=== PATIENT | male | born 1960 | race Native Hawaiian/Other Pacific Islander ===

== ENCOUNTER 2016-11-26 22:11 | Emergency (ER) | payer MEDICAID ==
[2016-11-26 22:17] VITALS: BP 130/80; PULSE 81; RESP 16; TEMP 97.9; O2SAT 100
--- NOTE | 2016-11-26 22:40 | ED PDOC ---
Lower Extremity Pain/Injury Time Seen by Provider: 11/26/16 22:19 Chief Complaint (Nursing): Lower Extremity Problem/Injury History Per: Patient Onset/Duration Of Symptoms: Gradual Current Symptoms Are (Timing): Still Present Severity: Mild Pain Scale Rating Of: 2 Additional Complaint(s): Redness and irritation to both feet unkown duration. No trauma. Past Medical History Vital Signs: Last Vital Signs Temp 97.9 F 11/26/16 22:14 Pulse 81 11/26/16 22:14 Resp 16 11/26/16 22:14 BP 130/80 11/26/16 22:14 Pulse Ox 100 11/26/16 22:14 - Medical History PMH: Depression, HTN, Hypercholesterolemia - Family History Family History: States: Unknown Family Hx - Immunization History Hx Tetanus Toxoid Vaccination: No Hx Influenza Vaccination: No Hx Pneumococcal Vaccination: No - Home Medications Home Medications: Ambulatory Orders Medication Instructions Recorded Atorvastatin [Lipitor] 11/13/15 Hydrochlorothiazide 11/13/15 Clotrimazole/Betamethasone 15 gm EXT BID #2 tube 11/26/16 [Lotrisone] - Allergies Allergies/Adverse Reactions: Allergies Allergy/AdvReac Type Severity Reaction Status Date / Time No Known Allergies Allergy Verified 11/26/16 22:14 Review of Systems Constitutional: Negative for: Fever Musculoskeletal: Positive for: Foot Pain Physical Exam - Physical Exam Appears: Positive for: Non-toxic, No Acute Distress Skin: Positive for: Rash (Erythemetous rash toes and interdigital spaces bilat. No swelling) - ECG O2 Sat by Pulse Oximetry: 100 Disposition - Clinical Impression Clinical Impression: Tinea pedis - Patient ED Disposition Is Patient to be Admitted: No Counseled Patient/Family Regarding: Diagnosis, Need For Followup, Rx Given - Disposition Referrals: Podiatry Clinic [Outside] Disposition: Routine/Home Disposition Time: 22:41 Condition: FAIR Prescriptions: Clotrimazole/Betamethasone [Lotrisone] 15 gm EXT BID #2 tube Instructions: Tinea Pedis (ED)
== END 2016-11-26 23:00 | disposition home or self-care (01) ==
LOC: H.ER 22:11
DX: B35.3 Tinea pedis (principal)

== ENCOUNTER 2016-12-23 22:22 | Emergency (ER) | payer MEDICAID ==
[2016-12-23 22:30] VITALS: BP 106/62; PULSE 70; RESP 16; TEMP 99.1; O2SAT 99
--- NOTE | 2016-12-23 23:37 | ED PDOC ---
Lower Extremity Pain/Injury Time Seen by Provider: 12/23/16 22:38 Chief Complaint (Nursing): Lower Extremity Problem/Injury Chief Complaint (Provider): rash to both feet History Per: Patient Additional Complaint(s): 56-year-old non-domiciled male presents to emergency department with a rash to both feet ongoing for 1 year. Patient states rash has been bothering him more so in the last couple of days. Patient currently lives at the retirement in [place]. He denies any recent fall or trauma, denies any fever or chills. Past Medical History Reviewed: Historical Data, Nursing Documentation, Vital Signs Vital Signs: Last Vital Signs Temp 99.1 F 12/23/16 22:26 Pulse 70 12/23/16 22:26 Resp 16 12/23/16 22:26 BP 106/62 12/23/16 22:26 Pulse Ox 99 12/23/16 22:26 - Medical History PMH: Depression, HTN, Hypercholesterolemia - Family History Family History: States: No Known Family Hx - Living Arrangements Living Arrangements: Other (lives in retirement in [place]) - Social History Current smoker - smoking cessation education provided: No Alcohol: None Drugs: Denies - Home Medications Home Medications: Ambulatory Orders Medication Instructions Recorded Atorvastatin [Lipitor] 11/13/15 Hydrochlorothiazide 11/13/15 Clotrimazole/Betamethasone 15 gm EXT BID #2 tube 11/26/16 [Lotrisone] Ketoconazole 2% Cr [Nizoral] 60 gm TOP BID #1 tube 12/23/16 - Allergies Allergies/Adverse Reactions: Allergies Allergy/AdvReac Type Severity Reaction Status Date / Time No Known Allergies Allergy Verified 11/26/16 22:14 Wells Criteria for PE - Wells Criteria for Pulmonary Embolism Clinical Signs and Symptoms of DVT: No P.E is #1 Diagnosis, or Equally Likely: No Heart Rate >100: No Immobilization at least 3 days;Surgery previous 4 weeks: No Previous, objectively diagnosed PE or DVT: No Hemoptysis: No Malignancy w/treatment within 6 months, or palliative: No Total Score: 0 Review of Systems ROS Statement: Except As Marked, All Systems Reviewed And Found Negative Constitutional: Negative for: Fever Musculoskeletal: Positive for: Foot Pain Physical Exam - Reviewed Nursing Documentation Reviewed: Yes Vital Signs Reviewed: Yes - Physical Exam Appears: Positive for: Well, Non-toxic, No Acute Distress Skin: Negative for: Rash Eye Exam: Positive for: Normal appearance Extremity: Positive for: Other (tinea pedis noted to both feet with acute cellulitis, no active drainage, severe dry skin noted to plantar aspects of both feet, normal distal sensation, palpable DP pulses bilaterally) Neurologic/Psych: Positive for: Alert, Oriented, Gait (steady) - ECG O2 Sat by Pulse Oximetry: 99 Pulse Ox Interpretation: Normal Medical Decision Making Medical Decision Making: Impression: chronic tinea pedis Plan: Rx ketoconazole cream Patient was instructed to apply cream as directed, as prescribed. He was referred to clinic for follow up. Disposition - Clinical Impression Clinical Impression: Tinea pedis - Patient ED Disposition Is Patient to be Admitted: No Counseled Patient/Family Regarding: Diagnosis, Need For Followup, Rx Given - Disposition Referrals: Podiatry Clinic [Outside] Disposition: Routine/Home Disposition Time: 23:21 Condition: STABLE Additional Instructions: Apply cream as directed. Follow up with clinic. Prescriptions: Ketoconazole 2% Cr [Nizoral] 60 gm TOP BID #1 tube Instructions: Tinea Pedis (ED)
== END 2016-12-24 00:23 | disposition home or self-care (01) ==
LOC: H.ER 22:22
DX: B35.3 Tinea pedis (principal)

== ENCOUNTER 2017-02-26 00:58 | Emergency (ER) | payer MEDICAID ==
[2017-02-26 01:07] VITALS: BP 112/75; PULSE 74; RESP 18; TEMP 98.6; O2SAT 99
[2017-02-26 01:08] VITALS: BMI 20.7
[2017-02-26] MEDS ORDERED: Promethazine/Cod 6.25mg-10mg/5ml Syr UD PO STA (01:30)
--- NOTE | 2017-02-26 01:34 | ED PDOC ---
HPI: Skin/Bite Injury Time Seen by Provider: 02/26/17 01:17 Chief Complaint (Nursing): Cough, Cold, Congestion Chief Complaint (Provider): Cough History Per: Patient Additional Complaint(s): Patient is a 56 yo male, PMh of HTN, High Cholesterol and Depression, presents to ED with c/o cough and nasal congestion x 2 days. Denies chest pain, SOB. Past Medical History Reviewed: Nursing Documentation, Vital Signs Vital Signs: Last Vital Signs Temp 98.6 F 02/26/17 01:15 Pulse 74 02/26/17 01:15 Resp 18 02/26/17 01:15 BP 112/75 02/26/17 01:15 Pulse Ox 99 02/26/17 01:34 - Medical History PMH: Depression, HTN, Hypercholesterolemia - Family History Family History: States: Unknown Family Hx - Living Arrangements Living Arrangements: With Family - Social History Current smoker - smoking cessation education provided: No Alcohol: None Drugs: Denies - Immunization History Hx Tetanus Toxoid Vaccination: No Hx Influenza Vaccination: No Hx Pneumococcal Vaccination: No - Home Medications Home Medications: Ambulatory Orders Medication Instructions Recorded Atorvastatin [Lipitor] 11/13/15 Hydrochlorothiazide 11/13/15 Clotrimazole/Betamethasone 15 gm EXT BID #2 tube 11/26/16 [Lotrisone] Ketoconazole 2% Cr [Nizoral] 60 gm TOP BID #1 tube 12/23/16 Azithromycin [Zithromax] 500 mg PO DAILY #6 tab 02/26/17 Guaifenesin/Pseudoephedrne HCl 1 tab PO DAILY PRN #30 ter 02/26/17 [Mucinex D 600 mg-60 mg] Promethazine HCl/Codeine 5 ml PO HS #80 ml 02/26/17 [Prometh-Codein 6.25-10 mg/5 ml] - Allergies Allergies/Adverse Reactions: Allergies Allergy/AdvReac Type Severity Reaction Status Date / Time No Known Allergies Allergy Verified 02/26/17 01:15 Review of Systems ROS Statement: Except As Marked, All Systems Reviewed And Found Negative Respiratory: Positive for: Cough Physical Exam - Reviewed Nursing Documentation Reviewed: Yes Vital Signs Reviewed: Yes - Physical Exam Appears: Positive for: Well, Non-toxic, No Acute Distress Head Exam: Positive for: ATRAUMATIC, NORMAL INSPECTION, NORMOCEPHALIC Skin: Positive for: Normal Color, Warm, DRY Eye Exam: Positive for: EOMI, Normal appearance, PERRL ENT: Positive for: Normal ENT Inspection Neck: Positive for: Normal, Painless ROM Cardiovascular/Chest: Positive for: Regular Rate, Rhythm Respiratory: Positive for: CNT, Normal Breath Sounds Gastrointestinal/Abdominal: Positive for: Normal Exam, Bowel Sounds, Soft Back: Positive for: Normal Inspection Extremity: Positive for: Normal ROM Neurologic/Psych: Positive for: Alert, Oriented - ECG O2 Sat by Pulse Oximetry: 99 Medical Decision Making Medical Decision Making: CXR: increased kimberly hilar markings and questionable infiltrate RLL Given RX for Mucinex, Zithromax and Promethazine with codeine Disposition - Clinical Impression Clinical Impression: Upper respiratory infection - Patient ED Disposition Is Patient to be Admitted: No - Disposition Disposition: Routine/Home Disposition Time: 04:45 Condition: STABLE Prescriptions: Azithromycin [Zithromax] 500 mg PO DAILY #6 tab Guaifenesin/Pseudoephedrne HCl [Mucinex D 600 mg-60 mg] 1 tab PO DAILY PRN #30 ter PRN Reason: congestion Promethazine HCl/Codeine [Prometh-Codein 6.25-10 mg/5 ml] 5 ml PO HS #80 ml Instructions: Upper Respiratory Infection (ED) Forms: [employer] (Yakut)
[2017-02-26] MEDS ORDERED: Promethazine/Cod 6.25mg-10mg/5ml Syr UD ONE (01:37)
--- NOTE | 2017-02-26 08:05 | RAD ---
HISTORY: Cough COMPARISON: 11/03/2015. TECHNIQUE: Chest PA and lateral FINDINGS: LUNGS: Hyperinflation, manifestations of COPD. No active pulmonary disease. PLEURA: No significant pleural effusion identified. No pneumothorax apparent. CARDIOVASCULAR: Normal. OSSEOUS STRUCTURES: No significant abnormalities. VISUALIZED UPPER ABDOMEN: Normal. OTHER FINDINGS: None. IMPRESSION: No active disease. No significant interval change compared to the prior examination(s). No preliminary report provided by emergency department personnel.
== END 2017-02-26 06:02 | disposition home or self-care (01) ==
LOC: H.ER 00:58
DX: J06.9 Acute upper respiratory infection, unspecified (principal); E78.00 Pure hypercholesterolemia, unspecified; F32.9 Major depressive disorder, single episode, unspecified; I10 Essential (primary) hypertension

== ENCOUNTER 2017-02-28 05:18 | Emergency (ER) | payer MEDICAID ==
[2017-02-28 05:18] VITALS: BMI 20.7
--- NOTE | 2017-02-28 06:03 | ED PDOC ---
Lower Extremity Pain/Injury Time Seen by Provider: 02/28/17 05:36 Chief Complaint (Nursing): Lower Extremity Problem/Injury Chief Complaint (Provider): Lower Extremity Problem History Per: Patient History/Exam Limitations: no limitations Onset/Duration Of Symptoms: Worse Since (x1 week) Current Symptoms Are (Timing): Constant Additional Complaint(s): 56 year old male presents to ED with complaints of bilateral lower extremity swelling and has a past medical history of HTN and hypercholesterolemia. Patient states that this condition is chronic and admits to being evaluated by podiatry last week, but notes that in the last week his extremities have become more swollen and painful. (-) chest pain, (+) SOB (chronic). PCP: None Past Medical History Reviewed: Historical Data, Nursing Documentation, Vital Signs Vital Signs: Last Vital Signs Temp 97.8 F 02/28/17 05:29 Pulse 66 02/28/17 05:29 Resp 15 02/28/17 05:29 BP 123/79 02/28/17 05:29 Pulse Ox 98 02/28/17 05:29 - Medical History PMH: Depression, HTN, Hypercholesterolemia Denies: No Chronic Diseases - Surgical History Surgical History: No Surg Hx - Family History Family History: States: Unknown Family Hx - Living Arrangements Living Arrangements: Other (Undomiciled) - Social History Alcohol: Other ((+) drinker) - Immunization History Hx Tetanus Toxoid Vaccination: No Hx Influenza Vaccination: No Hx Pneumococcal Vaccination: No - Home Medications Home Medications: Ambulatory Orders Medication Instructions Recorded Atorvastatin [Lipitor] 11/13/15 Hydrochlorothiazide 11/13/15 Clotrimazole/Betamethasone 15 gm EXT BID #2 tube 11/26/16 [Lotrisone] Ketoconazole 2% Cr [Nizoral] 60 gm TOP BID #1 tube 12/23/16 Azithromycin [Zithromax] 500 mg PO DAILY #6 tab 02/26/17 Guaifenesin/Pseudoephedrne HCl 1 tab PO DAILY PRN #30 ter 02/26/17 [Mucinex D 600 mg-60 mg] Promethazine HCl/Codeine 5 ml PO HS #80 ml 02/26/17 [Prometh-Codein 6.25-10 mg/5 ml] - Allergies Allergies/Adverse Reactions: Allergies Allergy/AdvReac Type Severity Reaction Status Date / Time No Known Allergies Allergy Verified 02/26/17 01:15 Wells Criteria for PE - Wells Criteria for Pulmonary Embolism Heart Rate >100: No Immobilization at least 3 days;Surgery previous 4 weeks: No Previous, objectively diagnosed PE or DVT: No Hemoptysis: No Malignancy w/treatment within 6 months, or palliative: No Total Score: 0 Review of Systems ROS Statement: Except As Marked, All Systems Reviewed And Found Negative Cardiovascular: Negative for: Chest Pain Respiratory: Positive for: Shortness of Breath (chronic) Musculoskeletal: Positive for: Leg Pain (bilateral leg swelling and pain) Physical Exam - Reviewed Nursing Documentation Reviewed: Yes Vital Signs Reviewed: Yes - Physical Exam Appears: Positive for: Non-toxic, No Acute Distress Head Exam: Positive for: ATRAUMATIC Skin: Positive for: Normal Color, Warm, Dry Eye Exam: Positive for: Normal appearance, EOMI, PERRL ENT: Positive for: Normal ENT Inspection Neck: Positive for: Normal Cardiovascular/Chest: Positive for: Regular Rate, Rhythm. Negative for: Murmur Respiratory: Positive for: Normal Breath Sounds. Negative for: Respiratory Distress Gastrointestinal/Abdominal: Positive for: Soft. Negative for: Tenderness Extremity: Positive for: Normal ROM, Swelling (bilateral lower extremity swelling; 1+ pitting edema to bilateral knees). Negative for: Deformity Neurologic/Psych: Positive for: Alert, Oriented. Negative for: Motor/Sensory Deficits - ECG O2 Sat by Pulse Oximetry: 98 (RA) Pulse Ox Interpretation: Normal Medical Decision Making Medical Decision Makin Initial impression: venous stasis Initial plan: * Labs * D Dimer * US DUPLEX LOWER EXTRM VEIN BILAT 0700 Patient will be signed out to Ragini Hines MD pending work up and US. Scribe Attestation: Documented by Ayla Johnson acting as a scribe for Austin Kim MD. Scribe Attestation: All medical record entries made by the Scribe were at my direction and personally dictated by me. I have reviewed the chart and agree that the record accurately reflects my personal performance of the history, physical exam, medical decision making, and the department course for this patient. I have also personally directed, reviewed, and agree with the discharge instructions and disposition. Disposition - Clinical Impression Clinical Impression: Leg swelling - Patient ED Disposition Is Patient to be Admitted: Transfer of Care - Disposition Disposition: Transfer of Care Disposition Time: 07:00 Condition: STABLE Forms: [employer] (Sami) Patient Signed Over To: Ragini Hines (at 0700) Handoff Comments: Pending ED work up and US
[2017-02-28 06:36] LABS: BASO # 0.1 K/uL (0.0-0.2); EOS # 0.2 K/uL (0.0-0.7); EOS % 3.1 % (0.0-4.0); LYMPH # 1.5 K/uL (1.0-4.3); LYMPH % 27.3 % (20.0-40.0); MEAN CELL VOLUME 93.5 fl (80.0-94.0); MEAN CORPUSCULAR HEMOGLOBIN 31.6 pg (27.0-31.0); MEAN CORPUSCULAR HGB CONC 33.8 g/dL (33.0-37.0); MONO # 0.6 K/uL (0.0-0.8); NEUT # 3.2 K/uL (1.8-7.0); NEUT % 57.6 % (50.0-75.0); NRBC % 0.1 % (0.0-0.0); RED CELL DISTRIBUTION WIDTH 13.7 % (11.5-14.5); WHITE BLOOD COUNT 5.6 K/uL (4.8-10.8)
[2017-02-28 06:37] LABS: BLOOD UREA NITROGEN 25 mg/dl (9-20); CALCIUM 8.7 mg/dL (8.4-10.2); CARBON DIOXIDE 27 mmol/L (22-30); CHLORIDE 105 mmol/L (98-107); GFR AFRICAN-AMERICAN > 60; GLUCOSE,RANDOM 92 mg/dL (75-110); POTASSIUM 3.6 MMOL/L (3.6-5.0); SODIUM 145 mmol/l (132-148)
--- NOTE | 2017-02-28 07:05 | ED PDOC ---
- Laboratory Results Result Diagrams: 02/28/17 06:10 02/28/17 06:10 - ECG O2 Sat by Pulse Oximetry: 98 (RA) Medical Decision Making Medical Decision Making: Received patient from Dr. Kim. Patient is pending ProBNP and LE Duplex US for leg swelling. US and proBNP unrevealing of acute disease Disposition Doctor Will See Patient In The: Office Counseled Patient/Family Regarding: Diagnosis, Need For Followup - Clinical Impression Clinical Impression: Leg swelling - POA Present On Arrival: None - Disposition Referrals: [facility] [Outside] [facility] [Outside] [facility] [Outside] Podiatry Clinic [Outside] Disposition: Routine/Home Disposition Time: 10:25 Condition: STABLE Instructions: Leg Edema (ED) Forms: [employer] (Yoruba)
--- NOTE | 2017-02-28 07:43 | US ---
EXAM: US Duplex Bilateral Lower Extremity Veins CLINICAL HISTORY: 56 years old, male; Pain; Other: Legs; Additional info: R/O dvt TECHNIQUE: Real-time ultrasound scan of the veins of the bilateral lower extremities with color Doppler flow, spectral waveform analysis and compression. COMPARISON: No relevant prior studies available. FINDINGS: Right deep veins: Unremarkable. No DVT in the right common femoral, femoral, proximal deep femoral or popliteal veins. The veins demonstrate normal color flow, are normally compressible, with normal phasic flow and/or augmentation response. Right superficial veins: Unremarkable. No thrombus in the visualized right great saphenous vein. Left deep veins: Unremarkable. No DVT in the left common femoral, femoral, proximal deep femoral or popliteal veins. The veins demonstrate normal color flow, are normally compressible, with normal phasic flow and/or augmentation response. Left superficial veins: Unremarkable. No thrombus in the visualized left great saphenous vein. Soft tissues: No acute findings. No popliteal cyst. IMPRESSION: Normal bilateral lower extremity duplex venous ultrasound.
[2017-02-28 07:54] VITALS: BP 126/74; PULSE 84; RESP 18; TEMP 98.4
[2017-02-28 10:26] VITALS: O2SAT 98
== END 2017-02-28 11:00 | disposition home or self-care (01) ==
LOC: H.ER 05:18
DX: R60.0 Localized edema (principal); I10 Essential (primary) hypertension; E78.00 Pure hypercholesterolemia, unspecified; F32.9 Major depressive disorder, single episode, unspecified; Z86.718 Personal history of other venous thrombosis and embolism

== ENCOUNTER 2017-03-06 22:20 | Emergency (ER) | payer MEDICAID ==
[2017-03-06 22:20] VITALS: BMI 20.7
[2017-03-06 22:35] VITALS: BP 113/63; PULSE 78; RESP 18; TEMP 97.7; O2SAT 98
[2017-03-06 23:02] LABS: BASO # 0.1 K/uL (0.0-0.2); BASO % 1.3 % (0.0-2.0); EOS # 0.2 K/uL (0.0-0.7); EOS % 2.3 % (0.0-4.0); HEMATOCRIT 41.8 % (35.0-51.0); LYMPH # 2.3 K/uL (1.0-4.3); LYMPH % 29.2 % (20.0-40.0); MEAN CELL VOLUME 93.4 fl (80.0-94.0); MEAN CORPUSCULAR HEMOGLOBIN 31.1 pg (27.0-31.0); MEAN CORPUSCULAR HGB CONC 33.3 g/dL (33.0-37.0); MEAN PLATELET VOLUME 7.5 fl (7.2-11.7); MONO # 0.8 K/uL (0.0-0.8); MONO % 10.1 % (0.0-10.0); NEUT # 4.4 K/uL (1.8-7.0); NEUT % 57.1 % (50.0-75.0); RED CELL DISTRIBUTION WIDTH 13.8 % (11.5-14.5); WHITE BLOOD COUNT 7.8 K/uL (4.8-10.8)
[2017-03-06 23:10] LABS: PARTIAL THROMBOPLASTIN TIME 39.6 Seconds (25.6-37.1)
[2017-03-06 23:15] LABS: ALB/GLOB RATIO 1.7 (1.0-2.1); ALCOHOL SERUM 55 mg/dl (0-10); ALKALINE PHOSPHATASE 55 U/L (38-126); ALT/SGPT 29 U/L (21-72); AST/SGOT 27 U/L (17-59); BILIRUBIN,TOTAL 0.7 mg/dl (0.2-1.3); BLOOD UREA NITROGEN 15 mg/dl (9-20); CALCIUM 8.7 mg/dL (8.4-10.2); CARBON DIOXIDE 25 mmol/L (22-30); CHLORIDE 102 mmol/L (98-107); GFR AFRICAN-AMERICAN > 60; GLUCOSE,RANDOM 97 mg/dL (75-110); SODIUM 142 mmol/l (132-148); TOTAL PROTEIN 6.7 G/DL (6.3-8.2)
[2017-03-06 23:19] LABS: POTASSIUM 3.4 MMOL/L (3.6-5.0)
--- NOTE | 2017-03-07 02:17 | ED PDOC ---
HPI: Abdomen Time Seen by Provider: 03/06/17 22:45 Chief Complaint (Nursing): GI Problem Chief Complaint (Provider): Bright red blood per rectum History Per: Patient History/Exam Limitations: no limitations Onset/Duration Of Symptoms: Days (x 2 weeks) Current Symptoms Are (Timing): Still Present Additional Complaint(s): Patient is a 56 y/o [place]ian male with a past medical history of hemorrhoids and hypercholesterolemia, who presents to the ED complaining of intermittent bright red blood per rectum x 2 weeks. Patient claims that he has an appointment tomorrow with his primary care doctor, Dr Roman. He note hematochezia but denies associated abdominal pain, rectal pain, shortness of breath, or chest pain. PMD: FAMILY PROVIDER,NO Past Medical History Reviewed: Historical Data, Nursing Documentation, Vital Signs Vital Signs: Last Vital Signs Temp 97.7 F 03/06/17 22:33 Pulse 78 03/06/17 22:33 Resp 18 03/06/17 22:33 BP 113/63 03/06/17 22:33 Pulse Ox 98 03/07/17 02:32 - Medical History PMH: Depression, HTN, Hypercholesterolemia - Surgical History Surgical History: No Surg Hx - Family History Family History: States: No Known Family Hx, Unknown Family Hx - Living Arrangements Living Arrangements: Other (homeless) - Social History Current smoker - smoking cessation education provided: Yes (Light smoker <10 cigarettes daily) Alcohol: Occasional (few days a week) Drugs: Denies - Immunization History Hx Tetanus Toxoid Vaccination: No Hx Influenza Vaccination: No Hx Pneumococcal Vaccination: No - Home Medications Home Medications: Ambulatory Orders Medication Instructions Recorded Atorvastatin [Lipitor] 11/13/15 Hydrochlorothiazide 11/13/15 Clotrimazole/Betamethasone 15 gm EXT BID #2 tube 11/26/16 [Lotrisone] Ketoconazole 2% Cr [Nizoral] 60 gm TOP BID #1 tube 12/23/16 Azithromycin [Zithromax] 500 mg PO DAILY #6 tab 02/26/17 Guaifenesin/Pseudoephedrne HCl 1 tab PO DAILY PRN #30 ter 02/26/17 [Mucinex D 600 mg-60 mg] Promethazine HCl/Codeine 5 ml PO HS #80 ml 02/26/17 [Prometh-Codein 6.25-10 mg/5 ml] - Allergies Allergies/Adverse Reactions: Allergies Allergy/AdvReac Type Severity Reaction Status Date / Time No Known Allergies Allergy Verified 03/06/17 22:32 Review of Systems ROS Statement: Except As Marked, All Systems Reviewed And Found Negative Cardiovascular: Negative for: Chest Pain Respiratory: Negative for: Shortness of Breath Gastrointestinal: Positive for: Hematochezia. Negative for: Abdominal Pain, Rectal Pain Physical Exam - Reviewed Nursing Documentation Reviewed: Yes Vital Signs Reviewed: Yes - Physical Exam Appears: Positive for: No Acute Distress Head Exam: Positive for: ATRAUMATIC, NORMOCEPHALIC Skin: Positive for: Normal Color, Warm, Dry Eye Exam: Positive for: Normal appearance, EOMI, PERRL Neck: Positive for: Normal, Painless ROM, Supple Cardiovascular/Chest: Positive for: Regular Rate, Rhythm. Negative for: Murmur Respiratory: Positive for: Normal Breath Sounds. Negative for: Respiratory Distress Gastrointestinal/Abdominal: Positive for: Normal Exam, Soft. Negative for: Tenderness Back: Positive for: Normal Inspection. Negative for: L CVA Tenderness, R CVA Tenderness, Vertebral Tenderness Neurologic/Psych: Positive for: Alert, Oriented (x3). Negative for: Motor/ Sensory Deficits - Laboratory Results Result Diagrams: 03/06/17 22:58 03/06/17 22:58 - ECG O2 Sat by Pulse Oximetry: 98 (RA) Pulse Ox Interpretation: Normal Medical Decision Making Medical Decision Making: Time: 22:46 Initial Impression: 56 y/o [place]ian male with intermittent hematochezia Initial Plan: -Alchohol Serum -Labs -Drug Screen -PTT -PT -Heplock Insertion 23:59 Labs show no clinically significant abnormalities. Provider opines that patient is likely bed seeking, given his homeless state. Patient encouraged to follow up with primary care doctor as scheduled. GI referral also provided. Diagnosis: Hematochezia Scribe Attestation: Documented by Omayra Kulkarni, acting as a scribe for Jonatan Alaniz MD Provider Scribe Attestation: All medical record entries made by the Scribe were at my direction and personally dictated by me. I have reviewed the chart and agree that the record accurately reflects my personal performance of the history, physical exam, medical decision making, and the department course for this patient. I have also personally directed, reviewed, and agree with the discharge instructions and disposition. Disposition - Clinical Impression Clinical Impression: Hematochezia - Disposition Referrals: Austin Todd MD, PhD [Staff Provider] - Disposition Time: 01:00 Condition: STABLE Instructions: Rectal Bleeding (ED) Forms: [employer] (Yoruba)
== END 2017-03-07 02:38 | disposition home or self-care (01) ==
LOC: H.ER 22:20
DX: K62.5 Hemorrhage of anus and rectum (principal)

== ENCOUNTER 2017-03-11 00:13 | Emergency (ER) | payer MEDICAID ==
[2017-03-11 00:34] VITALS: TEMP 98.2
[2017-03-11 01:21] LABS: BASO # 0.1 K/uL (0.0-0.2); BASO % 0.9 % (0.0-2.0); EOS # 0.3 K/uL (0.0-0.7); EOS % 3.4 % (0.0-4.0); HEMATOCRIT 40.8 % (35.0-51.0); LYMPH # 2.5 K/uL (1.0-4.3); LYMPH % 31.3 % (20.0-40.0); MEAN CELL VOLUME 93.9 fl (80.0-94.0); MEAN CORPUSCULAR HEMOGLOBIN 30.7 pg (27.0-31.0); MEAN CORPUSCULAR HGB CONC 32.7 g/dL (33.0-37.0); MEAN PLATELET VOLUME 7.9 fl (7.2-11.7); MONO # 0.6 K/uL (0.0-0.8); NEUT # 4.4 K/uL (1.8-7.0); NEUT % 56.4 % (50.0-75.0); NRBC % 0.1 % (0.0-0.0); RED CELL DISTRIBUTION WIDTH 13.9 % (11.5-14.5); WHITE BLOOD COUNT 7.9 K/uL (4.8-10.8)
[2017-03-11 01:30] LABS: BLOOD UREA NITROGEN 17 mg/dl (9-20); CALCIUM 8.3 mg/dL (8.4-10.2); CARBON DIOXIDE 25 mmol/L (22-30); CHLORIDE 105 mmol/L (98-107); GFR AFRICAN-AMERICAN > 60; GLUCOSE,RANDOM 97 mg/dL (75-110); POTASSIUM 3.4 MMOL/L (3.6-5.0); SODIUM 140 mmol/l (132-148)
--- NOTE | 2017-03-11 01:36 | ED PDOC ---
HPI: Chest Pain Time Seen by Provider: 03/11/17 00:29 Chief Complaint (Nursing): Chest Pain Chief Complaint (Provider): Chest Pain History Per: Patient History/Exam Limitations: no limitations Onset/Duration Of Symptoms: Days (x1) Current Symptoms Are (Timing): Still Present Additional Complaint(s): Jl Erazo is a 56 year old male, likely homeless, with previous medical history of hypertension and hypercholesterolemia, who presents to the emergency department with a complaint of chronic chest pain that became worse after dinner today. Denied fever, chills, nausea, vomiting, cough, shortness of breath or radiation of pain. Patient is observed carrying many bags full of multiple personal belongings. PMD: none provided Past Medical History Reviewed: Historical Data, Nursing Documentation, Vital Signs Vital Signs: Last Vital Signs Temp 98.2 F 03/11/17 00:31 Pulse 77 03/11/17 00:31 Resp 18 03/11/17 00:31 BP 115/67 03/11/17 00:31 Pulse Ox 98 03/11/17 01:43 - Medical History PMH: Depression, HTN, Hypercholesterolemia - Surgical History Surgical History: No Surg Hx - Family History Family History: States: Unknown Family Hx - Social History Current smoker - smoking cessation education provided: Yes Alcohol: Occasional Drugs: Denies - Immunization History Hx Tetanus Toxoid Vaccination: No Hx Influenza Vaccination: No Hx Pneumococcal Vaccination: No - Home Medications Home Medications: Ambulatory Orders Medication Instructions Recorded Atorvastatin [Lipitor] 11/13/15 Hydrochlorothiazide 11/13/15 Clotrimazole/Betamethasone 15 gm EXT BID #2 tube 11/26/16 [Lotrisone] Ketoconazole 2% Cr [Nizoral] 60 gm TOP BID #1 tube 12/23/16 Azithromycin [Zithromax] 500 mg PO DAILY #6 tab 02/26/17 Guaifenesin/Pseudoephedrne HCl 1 tab PO DAILY PRN #30 ter 02/26/17 [Mucinex D 600 mg-60 mg] Promethazine HCl/Codeine 5 ml PO HS #80 ml 02/26/17 [Prometh-Codein 6.25-10 mg/5 ml] - Allergies Allergies/Adverse Reactions: Allergies Allergy/AdvReac Type Severity Reaction Status Date / Time No Known Allergies Allergy Verified 03/11/17 00:31 Review of Systems ROS Statement: Except As Marked, All Systems Reviewed And Found Negative Constitutional: Negative for: Fever, Chills Cardiovascular: Positive for: Chest Pain (chronic). Negative for: Other ( radiation of pain) Respiratory: Negative for: Cough, SOB with Exertion Gastrointestinal: Negative for: Nausea, Vomiting Physical Exam - Reviewed Nursing Documentation Reviewed: Yes Vital Signs Reviewed: Yes - Physical Exam Appears: Positive for: Well, Non-toxic, No Acute Distress Head Exam: Positive for: ATRAUMATIC, NORMAL INSPECTION, NORMOCEPHALIC Skin: Positive for: Normal Color Eye Exam: Positive for: Normal appearance, EOMI, PERRL. Negative for: Nystagmus ENT: Positive for: Normal ENT Inspection Neck: Positive for: Normal Cardiovascular/Chest: Positive for: Regular Rate, Rhythm. Negative for: Chest Non Tender, Murmur, Bradycardia, Tachycardia Respiratory: Positive for: Normal Breath Sounds, Accessory Muscle Use. Negative for: Decreased Breath Sounds, Crackles, Rales, Rhonchi, Wheezing, Respiratory Distress Gastrointestinal/Abdominal: Positive for: Normal Exam, Bowel Sounds, Soft. Negative for: Tenderness Back: Positive for: Normal Inspection. Negative for: L CVA Tenderness, R CVA Tenderness Extremity: Positive for: Normal ROM. Negative for: Tenderness, Pedal Edema Neurologic/Psych: Positive for: Alert, Oriented - Laboratory Results Result Diagrams: 03/11/17 01:15 03/11/17 01:15 - ECG O2 Sat by Pulse Oximetry: 98 (RA) Pulse Ox Interpretation: Normal Medical Decision Making Medical Decision Making: Initial Impression: Noncardiac chest pain; homelessness Initial Plan: * EKG * BMP * Troponin I * CBC * CXR 530: Pt. w/ 2 neg troponins, will d/c home. Scribe Attestation: Documented by Sophia Polo, acting as a scribe for Austin Kim MD. Provider Scribe Attestation: All medical record entries made by the Scribe were at my direction and personally dictated by me. I have reviewed the chart and agree that the record accurately reflects my personal performance of the history, physical exam, medical decision making, and the department course for this patient. I have also personally directed, reviewed, and agree with the discharge instructions and disposition. Disposition - Clinical Impression Clinical Impression: Atypical chest pain - Patient ED Disposition Is Patient to be Admitted: No - Disposition Referrals: Aniket Daugherty MD [Family Provider] - Disposition: Routine/Home Disposition Time: 05:37 Condition: STABLE Instructions: Noncardiac Chest Pain (ED)
[2017-03-11 06:01] VITALS: BP 114/62; PULSE 70; RESP 16; O2SAT 99
--- NOTE | 2017-03-11 10:36 | RAD ---
HISTORY: cp COMPARISON: Chest x-ray performed 02/26/17 TECHNIQUE: Chest, one view. FINDINGS: LUNGS: No focal consolidation. Scattered probable calcified granulomas. Additional 7 mm nodular density at the left lung base. Biapical scarring/atelectasis. Please note that chest x-ray has limited sensitivity for the detection of pulmonary masses. PLEURA: No significant pleural effusion identified. No definite pneumothorax . CARDIOVASCULAR: Heart size appears within normal limits. Atherosclerotic calcifications of the aorta. OSSEOUS STRUCTURES: Osseous demineralization. Degenerative changes. VISUALIZED UPPER ABDOMEN: Unremarkable. OTHER FINDINGS: None. IMPRESSION: 7 mm nodular density left lung base, not clearly calcified. Suggest further evaluation with outpatient CT of the chest, if indicated. Numerous scattered probable calcified granulomas. Mild biapical scarring/atelectasis.
--- NOTE | 2017-03-12 10:29 | CARD ---
APPROVED REPORT EKG Measurement Heart [id number] ID [id number] <Conclusion> Normal sinus rhythm Normal ECG
== END 2017-03-11 06:19 | disposition home or self-care (01) ==
LOC: H.ER 00:13
DX: R07.89 Other chest pain (principal)

== ENCOUNTER 2017-03-26 23:24 | Emergency (ER) | payer MEDICAID ==
[2017-03-26 23:24] VITALS: BMI 20.7
[2017-03-26 23:32] VITALS: BP 105/71; PULSE 71; RESP 18; TEMP 98.8; O2SAT 99
--- NOTE | 2017-03-27 00:08 | ED PDOC ---
Lower Extremity Pain/Injury Time Seen by Provider: 03/26/17 23:34 Chief Complaint (Nursing): Lower Extremity Problem/Injury Chief Complaint (Provider): chronic foot pain x 1 year History Per: Patient History/Exam Limitations: no limitations Onset/Duration Of Symptoms: Days Current Symptoms Are (Timing): Still Present Severity: None Additional Complaint(s): Pt has not taken anything for pain. 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 Pt turns off lights and is sleeping in room on arrival. Past Medical History Reviewed: Historical Data, Nursing Documentation, Vital Signs Vital Signs: Last Vital Signs Temp 98.8 F 03/26/17 23:28 Pulse 71 03/26/17 23:28 Resp 18 03/26/17 23:28 BP 105/71 03/26/17 23:28 Pulse Ox 99 03/26/17 23:28 - Medical History PMH: Depression, HTN, Hypercholesterolemia - Family History Family History: States: Unknown Family Hx - Living Arrangements Living Arrangements: Other - Social History Current smoker - smoking cessation education provided: No Alcohol: None Drugs: Denies - Immunization History Hx Tetanus Toxoid Vaccination: No Hx Influenza Vaccination: No Hx Pneumococcal Vaccination: No - Home Medications Home Medications: Ambulatory Orders Medication Instructions Recorded Atorvastatin [Lipitor] 11/13/15 Hydrochlorothiazide 11/13/15 Clotrimazole/Betamethasone 15 gm EXT BID #2 tube 11/26/16 [Lotrisone] Ketoconazole 2% Cr [Nizoral] 60 gm TOP BID #1 tube 12/23/16 Azithromycin [Zithromax] 500 mg PO DAILY #6 tab 02/26/17 Guaifenesin/Pseudoephedrne HCl 1 tab PO DAILY PRN #30 ter 02/26/17 [Mucinex D 600 mg-60 mg] Promethazine HCl/Codeine 5 ml PO HS #80 ml 02/26/17 [Prometh-Codein 6.25-10 mg/5 ml] - Allergies Allergies/Adverse Reactions: Allergies Allergy/AdvReac Type Severity Reaction Status Date / Time No Known Allergies Allergy Verified 03/11/17 00:31 Review of Systems ROS Statement: Except As Marked, All Systems Reviewed And Found Negative Constitutional: Negative for: Fever, Chills Musculoskeletal: Positive for: Foot Pain Physical Exam - Reviewed Nursing Documentation Reviewed: Yes Vital Signs Reviewed: Yes - Physical Exam Appears: Positive for: Well, Non-toxic, No Acute Distress Head Exam: Positive for: ATRAUMATIC, NORMAL INSPECTION, NORMOCEPHALIC Skin: Positive for: Normal Color, Warm, DRY Eye Exam: Positive for: Normal appearance ENT: Positive for: Normal ENT Inspection Neck: Positive for: Normal, Painless ROM Cardiovascular/Chest: Positive for: Regular Rate, Rhythm Respiratory: Positive for: CNT, Normal Breath Sounds Pulses-Dorsalis Pedis (L): 2+ Pulses-Dorsalis Pedis (R): 2+ Pulses-Post. Tibialis (L): 2+ Pulses-Post. Tibialis (R): 2+ Back: Positive for: Normal Inspection Extremity: Positive for: Normal ROM, Other (Several callus on bilateral feet ) Neurologic/Psych: Positive for: Alert, Oriented - ECG O2 Sat by Pulse Oximetry: 99 Medical Decision Making Medical Decision Makin - Pt sleeping comfortable Disposition - Clinical Impression Clinical Impression: Chronic foot pain - Patient ED Disposition Is Patient to be Admitted: No - Disposition Referrals: Aniket Daugherty MD [Primary Care Provider] - Disposition: Routine/Home Disposition Time: 00:07 Condition: GOOD Instructions: Arthralgia (ED) Forms: [facility] (Telugu)
== END 2017-03-27 00:06 | disposition home or self-care (01) ==
LOC: H.ER 23:24
DX: M79.672 Pain in left foot (principal)

== ENCOUNTER 2017-04-15 22:16 | Emergency (ER) | payer MEDICAID ==
[2017-04-15 22:16] VITALS: BMI 20.7
[2017-04-15 22:22] VITALS: O2SAT 100
--- NOTE | 2017-04-15 22:56 | ED PDOC ---
Lower Extremity Pain/Injury Time Seen by Provider: 04/15/17 22:29 Chief Complaint (Nursing): Lower Extremity Problem/Injury Chief Complaint (Provider): Leg swelling History Per: Patient Additional Complaint(s): Patient stating his lower legs are "painful and swollen". Denies injury or issues. Past Medical History Reviewed: Nursing Documentation, Vital Signs Vital Signs: Last Vital Signs Temp 97.8 F 04/15/17 22:20 Pulse 72 04/15/17 22:20 Resp 18 04/15/17 22:20 BP 138/81 04/15/17 22:20 Pulse Ox 100 04/15/17 22:20 - Medical History PMH: Depression, HTN, Hypercholesterolemia - Family History Family History: States: Unknown Family Hx - Living Arrangements Living Arrangements: Other - Immunization History Hx Tetanus Toxoid Vaccination: No Hx Influenza Vaccination: No Hx Pneumococcal Vaccination: No - Home Medications Home Medications: Ambulatory Orders Medication Instructions Recorded Atorvastatin [Lipitor] 11/13/15 Hydrochlorothiazide 11/13/15 Clotrimazole/Betamethasone 15 gm EXT BID #2 tube 11/26/16 [Lotrisone] Ketoconazole 2% Cr [Nizoral] 60 gm TOP BID #1 tube 12/23/16 Azithromycin [Zithromax] 500 mg PO DAILY #6 tab 02/26/17 Guaifenesin/Pseudoephedrne HCl 1 tab PO DAILY PRN #30 ter 02/26/17 [Mucinex D 600 mg-60 mg] Promethazine HCl/Codeine 5 ml PO HS #80 ml 02/26/17 [Prometh-Codein 6.25-10 mg/5 ml] - Allergies Allergies/Adverse Reactions: Allergies Allergy/AdvReac Type Severity Reaction Status Date / Time No Known Allergies Allergy Verified 03/11/17 00:31 Review of Systems ROS Statement: Except As Marked, All Systems Reviewed And Found Negative Musculoskeletal: Positive for: Leg Pain Physical Exam - Reviewed Nursing Documentation Reviewed: Yes Vital Signs Reviewed: Yes - Physical Exam Appears: Positive for: Well, Non-toxic, No Acute Distress Head Exam: Positive for: ATRAUMATIC, NORMAL INSPECTION, NORMOCEPHALIC Skin: Positive for: Normal Color, Warm, DRY Eye Exam: Positive for: EOMI, Normal appearance, PERRL ENT: Positive for: Normal ENT Inspection Neck: Positive for: Normal, Painless ROM Cardiovascular/Chest: Positive for: Regular Rate, Rhythm Respiratory: Positive for: CNT, Normal Breath Sounds Gastrointestinal/Abdominal: Positive for: Normal Exam, Bowel Sounds, Soft Back: Positive for: Normal Inspection Extremity: Positive for: Swelling (b/l LE) Neurologic/Psych: Positive for: Alert, Oriented - Laboratory Results Result Diagrams: 04/15/17 23:05 04/15/17 23:05 - ECG O2 Sat by Pulse Oximetry: 100 Medical Decision Making Medical Decision Making: Labs resulted and reviewed with Pt who demonstrated full understanding Disposition - Clinical Impression Clinical Impression: Leg swelling - Patient ED Disposition Is Patient to be Admitted: No - Disposition Disposition: Routine/Home Disposition Time: 04:58 Condition: STABLE Instructions: Leg Edema (ED) Forms: [facility] (Samoan) - POA Present On Arrival: None
[2017-04-15 23:11] LABS: BASO # 0.1 K/uL (0.0-0.2); BASO % 0.9 % (0.0-2.0); EOS # 0.2 K/uL (0.0-0.7); EOS % 2.5 % (0.0-4.0); HEMATOCRIT 44.8 % (35.0-51.0); LYMPH # 2.4 K/uL (1.0-4.3); MEAN CORPUSCULAR HEMOGLOBIN 31.3 pg (27.0-31.0); MEAN CORPUSCULAR HGB CONC 33.6 g/dL (33.0-37.0); MEAN PLATELET VOLUME 7.8 fl (7.2-11.7); MONO % 13.5 % (0.0-10.0); NEUT # 3.8 K/uL (1.8-7.0); NEUT % 51.1 % (50.0-75.0); NRBC % 0.1 % (0.0-0.0); RED CELL DISTRIBUTION WIDTH 13.9 % (11.5-14.5); WHITE BLOOD COUNT 7.4 K/uL (4.8-10.8)
[2017-04-15 23:18] LABS: ALB/GLOB RATIO 1.5 (1.0-2.1); ALKALINE PHOSPHATASE 58 U/L (38-126); ALT/SGPT 33 U/L (21-72); AST/SGOT 24 U/L (17-59); BILIRUBIN,TOTAL 0.4 mg/dl (0.2-1.3); BLOOD UREA NITROGEN 20 mg/dl (9-20); CARBON DIOXIDE 30 mmol/L (22-30); CHLORIDE 100 mmol/L (98-107); GFR AFRICAN-AMERICAN > 60; GLUCOSE,RANDOM 96 mg/dL (75-110); POTASSIUM 3.5 MMOL/L (3.6-5.0); SODIUM 140 mmol/l (132-148)
[2017-04-15] MEDS ORDERED: Potassium Chloride 20 mEq ER Tab PO ONE (23:39)
[2017-04-16 05:36] VITALS: BP 130/85; PULSE 76; RESP 16; TEMP 97.6
--- NOTE | 2017-04-16 09:50 | RAD ---
HISTORY: LE edema COMPARISON: Chest radiograph 03/11/2017. TECHNIQUE: Chest PA and lateral FINDINGS: LUNGS: No acute infiltrate bilaterally. Calcified pleural plaque straight scattered at the bases greater than apices bilateral biapical fibrotic changes again evident mildly. PLEURA: Trace left pleural effusion suggested. None is seen at the right. CARDIOVASCULAR: Normal. OSSEOUS STRUCTURES: No significant abnormalities. VISUALIZED UPPER ABDOMEN: Normal. OTHER FINDINGS: None. IMPRESSION: Trace of pleural effusion. No acute infiltrate bilaterally. Bilateral calcified pleural plaques again evident.
--- NOTE | 2017-04-16 11:23 | CARD ---
APPROVED REPORT EKG Measurement Heart [id number] <Conclusion> Sinus bradycardia Otherwise normal ECG
== END 2017-04-16 06:01 | disposition home or self-care (01) ==
LOC: H.ER 22:16
DX: R60.0 Localized edema (principal); E78.00 Pure hypercholesterolemia, unspecified; F32.9 Major depressive disorder, single episode, unspecified; I10 Essential (primary) hypertension

== ENCOUNTER 2017-04-22 01:36 | Emergency (ER) | payer MEDICAID ==
[2017-04-22 01:36] VITALS: BMI 20.7
[2017-04-22 01:54] VITALS: BP 118/79; PULSE 77; RESP 16; TEMP 98; O2SAT 100
--- NOTE | 2017-04-22 02:29 | ED PDOC ---
HPI: General Adult Time Seen by Provider: 04/22/17 01:39 Chief Complaint (Nursing): Lower Extremity Problem/Injury History Per: Patient Additional Complaint(s): Pt. states for the past 6 months he's had pain and swelling to both feet with pruritus x 6 months. Of note, pt. was evaluated for this 6 days ago and had blood work done. Further states he has already had xrays done which were normal. Denies trauma, fever, calf pain. Past Medical History Reviewed: Historical Data, Nursing Documentation, Vital Signs Vital Signs: Last Vital Signs Temp 98.0 F 04/22/17 01:52 Pulse 77 04/22/17 01:52 Resp 16 04/22/17 01:52 BP 118/79 04/22/17 01:52 Pulse Ox 100 04/22/17 01:52 - Medical History PMH: Depression, HTN, Hypercholesterolemia - Family History Family History: States: No Known Family Hx - Immunization History Hx Tetanus Toxoid Vaccination: No Hx Influenza Vaccination: No Hx Pneumococcal Vaccination: No - Home Medications Home Medications: Ambulatory Orders Medication Instructions Recorded Atorvastatin [Lipitor] 11/13/15 Hydrochlorothiazide 11/13/15 Clotrimazole/Betamethasone 15 gm EXT BID #2 tube 11/26/16 [Lotrisone] Ketoconazole 2% Cr [Nizoral] 60 gm TOP BID #1 tube 12/23/16 Azithromycin [Zithromax] 500 mg PO DAILY #6 tab 02/26/17 Guaifenesin/Pseudoephedrne HCl 1 tab PO DAILY PRN #30 ter 02/26/17 [Mucinex D 600 mg-60 mg] Promethazine HCl/Codeine 5 ml PO HS #80 ml 02/26/17 [Prometh-Codein 6.25-10 mg/5 ml] Nystatin [Mycostatin Oint] 1 applic TOP BID #1 tube 04/22/17 - Allergies Allergies/Adverse Reactions: Allergies Allergy/AdvReac Type Severity Reaction Status Date / Time No Known Allergies Allergy Verified 04/22/17 01:51 Review of Systems ROS Statement: Except As Marked, All Systems Reviewed And Found Negative Physical Exam - Physical Exam Appears: Positive for: Well, Non-toxic, No Acute Distress Skin: Positive for: Normal Color, Warm. Negative for: Rash Pulses-Dorsalis Pedis (L): 2+ Pulses-Dorsalis Pedis (R): 2+ Extremity: Positive for: Normal ROM, Other (b/l plantar surface with scaling and on interdigital webspaces without swelling). Negative for: Pedal Edema (b/l ), Calf Tenderness (b/l) Neurologic/Psych: Positive for: Alert, Oriented - ECG O2 Sat by Pulse Oximetry: 100 Disposition - Clinical Impression Clinical Impression: Tinea pedis - Patient ED Disposition Is Patient to be Admitted: No - Disposition Referrals: [facility] [Outside] [facility] [Outside] Disposition: Routine/Home Disposition Time: 02:25 Condition: STABLE Prescriptions: Nystatin [Mycostatin Oint] 1 applic TOP BID #1 tube Instructions: Tinea Pedis (ED) Print Language: URDU
== END 2017-04-22 06:04 | disposition home or self-care (01) ==
LOC: H.ER 01:36
DX: B35.3 Tinea pedis (principal)

== ENCOUNTER 2017-05-11 23:08 | Emergency (ER) | payer MEDICAID ==
[2017-05-11 23:08] VITALS: BMI 20.7
[2017-05-11 23:18] VITALS: BP 123/63; PULSE 75; RESP 16; TEMP 97.9; O2SAT 100
--- NOTE | 2017-05-11 23:31 | ED PDOC ---
Lower Extremity Pain/Injury Time Seen by Provider: 05/11/17 23:20 Chief Complaint (Nursing): Lower Extremity Problem/Injury Chief Complaint (Provider): leg pain History Per: Patient Additional Complaint(s): 56-year-old non-domiciled male presents to emergency department complaining of bilateral leg pain and swelling that has been ongoing for about 1 year. Patient denies trauma or injury. Patient has been seen in emergency department for same complaint several times in the past and has had blood work and x-rays already completed. Patient denies any fever or chills and at present he denies any acute change to his chronic condition. Past Medical History Reviewed: Historical Data, Nursing Documentation, Vital Signs Vital Signs: Last Vital Signs Temp 97.9 F 05/11/17 23:16 Pulse 75 05/11/17 23:16 Resp 16 05/11/17 23:16 BP 123/63 05/11/17 23:16 Pulse Ox 100 05/11/17 23:16 - Medical History PMH: Depression, HTN, Hypercholesterolemia - Family History Family History: States: No Known Family Hx - Living Arrangements Living Arrangements: Other (non-domiciled) - Social History Current smoker - smoking cessation education provided: No Alcohol: None Drugs: Denies - Home Medications Home Medications: Ambulatory Orders Medication Instructions Recorded Atorvastatin [Lipitor] 11/13/15 Hydrochlorothiazide 11/13/15 Clotrimazole/Betamethasone 15 gm EXT BID #2 tube 11/26/16 [Lotrisone] Ketoconazole 2% Cr [Nizoral] 60 gm TOP BID #1 tube 12/23/16 Azithromycin [Zithromax] 500 mg PO DAILY #6 tab 02/26/17 Guaifenesin/Pseudoephedrne HCl 1 tab PO DAILY PRN #30 ter 02/26/17 [Mucinex D 600 mg-60 mg] Promethazine HCl/Codeine 5 ml PO HS #80 ml 02/26/17 [Prometh-Codein 6.25-10 mg/5 ml] Nystatin [Mycostatin Oint] 1 applic TOP BID #1 tube 04/22/17 Ibuprofen [Motrin] 600 mg PO Q6 PRN #15 tab 05/11/17 - Allergies Allergies/Adverse Reactions: Allergies Allergy/AdvReac Type Severity Reaction Status Date / Time No Known Allergies Allergy Verified 05/11/17 23:16 Wells Criteria for PE - Wells Criteria for Pulmonary Embolism Clinical Signs and Symptoms of DVT: No P.E is #1 Diagnosis, or Equally Likely: No Heart Rate >100: No Immobilization at least 3 days;Surgery previous 4 weeks: No Previous, objectively diagnosed PE or DVT: No Hemoptysis: No Malignancy w/treatment within 6 months, or palliative: No Total Score: 0 Review of Systems ROS Statement: Except As Marked, All Systems Reviewed And Found Negative Constitutional: Negative for: Fever Cardiovascular: Negative for: Chest Pain Respiratory: Negative for: Cough Gastrointestinal: Negative for: Nausea, Vomiting Musculoskeletal: Positive for: Leg Pain Physical Exam - Reviewed Nursing Documentation Reviewed: Yes Vital Signs Reviewed: Yes - Physical Exam Appears: Positive for: Well, Non-toxic, No Acute Distress Skin: Negative for: Rash Eye Exam: Positive for: Normal appearance Cardiovascular/Chest: Positive for: Regular Rate, Rhythm Respiratory: Positive for: Normal Breath Sounds Extremity: Positive for: Other (Pitting edema noted to lower extremities bilaterally, palpable DP pulses, normal distal sensation to bilateral lower extremities) Neurologic/Psych: Positive for: Alert, Oriented, Gait (steady) - ECG O2 Sat by Pulse Oximetry: 100 Pulse Ox Interpretation: Normal Medical Decision Making Medical Decision Makin-year-old male with chronic leg pain Plan: PO motrin Patient is ambulatory with steady gait. Rx motrin provided and patient was referred to clinic for follow up. Disposition - Clinical Impression Clinical Impression: Leg pain - Patient ED Disposition Is Patient to be Admitted: No Counseled Patient/Family Regarding: Diagnosis, Need For Followup, Rx Given - Disposition Referrals: [facility] [Outside] Disposition: Routine/Home Disposition Time: 23: Condition: STABLE Additional Instructions: Take rx meds as directed. Follow up Sunday with clinic. Prescriptions: Ibuprofen [Motrin] 600 mg PO Q6 PRN #15 tab PRN Reason: Pain, Moderate (4-7) Instructions: Leg Pain (ED) Forms: [employer] (Sinhala)
== END 2017-05-11 23:45 | disposition home or self-care (01) ==
LOC: H.ER 23:08
DX: M79.606 Pain in leg, unspecified (principal); E78.00 Pure hypercholesterolemia, unspecified; F32.9 Major depressive disorder, single episode, unspecified; I10 Essential (primary) hypertension

== ENCOUNTER 2017-05-22 21:42 | Emergency (ER) | payer MEDICAID ==
[2017-05-22 21:42] VITALS: BMI 20.7
[2017-05-22 22:47] VITALS: RESP 16; TEMP 98.2
--- NOTE | 2017-05-23 02:03 | ED PDOC ---
Lower Extremity Pain/Injury Time Seen by Provider: 05/23/17 01:38 Chief Complaint (Nursing): Lower Extremity Problem/Injury Chief Complaint (Provider): leg pain History Per: Patient History/Exam Limitations: no limitations Onset/Duration Of Symptoms: Days (months) Current Symptoms Are (Timing): Still Present Additional History Per: Patient Additional Complaint(s): 56 y/o male presents with ongoin leg pain/swelling x months. Patient with multiple visits for ED for same. Patient is homeless, requesting to shut his eyes and sleep for a little. Denies fever, headache, dizziness, chest pain, shortness of breath, palpitations, calf pain, recent travel. Past Medical History Reviewed: Historical Data, Nursing Documentation, Vital Signs Vital Signs: Last Vital Signs Temp 98.2 F 05/22/17 22:43 Pulse 70 05/22/17 22:43 Resp 16 05/22/17 22:43 BP 115/62 05/22/17 22:43 Pulse Ox 97 05/22/17 22:43 - Medical History PMH: Depression, HTN, Hypercholesterolemia - Family History Family History: States: Unknown Family Hx - Immunization History Hx Tetanus Toxoid Vaccination: No Hx Influenza Vaccination: No Hx Pneumococcal Vaccination: No - Home Medications Home Medications: Ambulatory Orders Medication Instructions Recorded Atorvastatin [Lipitor] 11/13/15 Hydrochlorothiazide 11/13/15 Clotrimazole/Betamethasone 15 gm EXT BID #2 tube 11/26/16 [Lotrisone] Ketoconazole 2% Cr [Nizoral] 60 gm TOP BID #1 tube 12/23/16 Azithromycin [Zithromax] 500 mg PO DAILY #6 tab 02/26/17 Guaifenesin/Pseudoephedrne HCl 1 tab PO DAILY PRN #30 ter 02/26/17 [Mucinex D 600 mg-60 mg] Promethazine HCl/Codeine 5 ml PO HS #80 ml 02/26/17 [Prometh-Codein 6.25-10 mg/5 ml] Nystatin [Mycostatin Oint] 1 applic TOP BID #1 tube 04/22/17 Ibuprofen [Motrin] 600 mg PO Q6 PRN #15 tab 05/11/17 - Allergies Allergies/Adverse Reactions: Allergies Allergy/AdvReac Type Severity Reaction Status Date / Time No Known Allergies Allergy Verified 05/22/17 22:43 Review of Systems ROS Statement: Except As Marked, All Systems Reviewed And Found Negative Musculoskeletal: Positive for: Leg Pain Physical Exam - Reviewed Nursing Documentation Reviewed: Yes Vital Signs Reviewed: Yes - Physical Exam Appears: Positive for: Well, Non-toxic, No Acute Distress (sleeping) Head Exam: Positive for: ATRAUMATIC, NORMAL INSPECTION, NORMOCEPHALIC Skin: Positive for: Normal Color Cardiovascular/Chest: Positive for: Regular Rate, Rhythm Respiratory: Positive for: Normal Breath Sounds Pulses-Dorsalis Pedis (L): 2+ Pulses-Dorsalis Pedis (R): 2+ Pulses-Post. Tibialis (L): 2+ Pulses-Post. Tibialis (R): 2+ Gastrointestinal/Abdominal: Positive for: Normal Exam Back: Positive for: Normal Inspection Extremity: Positive for: Normal ROM, Swelling (bilateral lower extremity). Negative for: Calf Tenderness Neurologic/Psych: Positive for: Alert, Oriented. Negative for: Motor/Sensory Deficits - ECG O2 Sat by Pulse Oximetry: 97 Disposition - Clinical Impression Clinical Impression: Leg swelling - Patient ED Disposition Is Patient to be Admitted: No Counseled Patient/Family Regarding: Diagnosis, Need For Followup - Disposition Referrals: [facility] [Outside] Disposition: Routine/Home Disposition Time: 03:42 Condition: STABLE Instructions: Leg Edema (ED) Forms: [employer] (Wolof)
[2017-05-23 05:39] VITALS: BP 122/76; PULSE 86; O2SAT 95
== END 2017-05-23 06:19 | disposition home or self-care (01) ==
LOC: H.ER 21:42
DX: R22.43 Localized swelling, mass and lump, lower limb, bilateral (principal); E78.00 Pure hypercholesterolemia, unspecified; F32.9 Major depressive disorder, single episode, unspecified; I10 Essential (primary) hypertension

== ENCOUNTER 2017-05-27 22:36 | Emergency (ER) | payer MEDICAID ==
[2017-05-27 22:36] VITALS: BMI 20.7
[2017-05-27 22:45] VITALS: BP 158/82; PULSE 77; RESP 17; TEMP 98; O2SAT 98
--- NOTE | 2017-05-27 23:00 | ED PDOC ---
Lower Extremity Pain/Injury Time Seen by Provider: 05/27/17 22:49 Chief Complaint (Nursing): Lower Extremity Problem/Injury Chief Complaint (Provider): foot pain History Per: Patient Additional Complaint(s): 56 year old non-domiciled male presents to ED with chronic swelling to both feet and legs ongoing for about 1 year. Patient denies any fall or injury. He denies any chest pain, SOB, MCNALLY, fever or chills. Patient states he needs to rest. He denies any recent travel. Past Medical History Reviewed: Historical Data, Nursing Documentation, Vital Signs Vital Signs: Last Vital Signs Temp 98.0 F 05/27/17 22:40 Pulse 77 05/27/17 22:40 Resp 17 05/27/17 22:40 BP 158/82 H 05/27/17 22:40 Pulse Ox 98 05/27/17 22:40 - Medical History PMH: Depression, HTN, Hypercholesterolemia - Family History Family History: States: Unknown Family Hx - Living Arrangements Living Arrangements: Other (undomiciled) - Social History Current smoker - smoking cessation education provided: No Alcohol: None Drugs: Denies - Home Medications Home Medications: Ambulatory Orders Medication Instructions Recorded Atorvastatin [Lipitor] 11/13/15 Hydrochlorothiazide 11/13/15 Clotrimazole/Betamethasone 15 gm EXT BID #2 tube 11/26/16 [Lotrisone] Ketoconazole 2% Cr [Nizoral] 60 gm TOP BID #1 tube 12/23/16 Azithromycin [Zithromax] 500 mg PO DAILY #6 tab 02/26/17 Guaifenesin/Pseudoephedrne HCl 1 tab PO DAILY PRN #30 ter 02/26/17 [Mucinex D 600 mg-60 mg] Promethazine HCl/Codeine 5 ml PO HS #80 ml 02/26/17 [Prometh-Codein 6.25-10 mg/5 ml] Nystatin [Mycostatin Oint] 1 applic TOP BID #1 tube 04/22/17 Ibuprofen [Motrin] 600 mg PO Q6 PRN #15 tab 05/11/17 - Allergies Allergies/Adverse Reactions: Allergies Allergy/AdvReac Type Severity Reaction Status Date / Time No Known Allergies Allergy Verified 05/22/17 22:43 Wells Criteria for PE - Wells Criteria for Pulmonary Embolism Clinical Signs and Symptoms of DVT: No P.E is #1 Diagnosis, or Equally Likely: No Heart Rate >100: No Immobilization at least 3 days;Surgery previous 4 weeks: No Previous, objectively diagnosed PE or DVT: No Hemoptysis: No Malignancy w/treatment within 6 months, or palliative: No Total Score: 0 Review of Systems ROS Statement: Except As Marked, All Systems Reviewed And Found Negative Musculoskeletal: Positive for: Foot Pain Physical Exam - Reviewed Nursing Documentation Reviewed: Yes Vital Signs Reviewed: Yes - Physical Exam Appears: Positive for: Well, Non-toxic, No Acute Distress Skin: Negative for: Rash Eye Exam: Positive for: Normal appearance Cardiovascular/Chest: Positive for: Regular Rate, Rhythm Respiratory: Positive for: Normal Breath Sounds. Negative for: Respiratory Distress Extremity: Positive for: Other (non-pitting edema noted to bilateral lower extremities with no calf tenderness bilaterally, normal distal sensation bilaterally) Neurologic/Psych: Positive for: Alert, Oriented, Gait (steady) - ECG O2 Sat by Pulse Oximetry: 98 Pulse Ox Interpretation: Normal Medical Decision Making Medical Decision Makin56 year old male with chronic foot edema. No infection noted to both feet. Patient declined offered pain medication Patient was referred to podiatry clinic for follow up. Disposition - Clinical Impression Clinical Impression: Leg swelling, Chronic foot pain - Patient ED Disposition Is Patient to be Admitted: No Counseled Patient/Family Regarding: Need For Followup - Disposition Referrals: Podiatry Clinic [Outside] Disposition: Routine/Home Disposition Time: 04:53 Condition: STABLE Additional Instructions: Follow up with podiatry clinic. Instructions: Leg Edema (ED), Arthralgia (ED) Forms: [employer] (Greenlandic)
== END 2017-05-28 05:47 | disposition home or self-care (01) ==
LOC: H.ER 22:36
DX: R60.0 Localized edema (principal); E78.00 Pure hypercholesterolemia, unspecified; F32.9 Major depressive disorder, single episode, unspecified; G89.29 Other chronic pain; I10 Essential (primary) hypertension

== ENCOUNTER 2017-08-23 03:29 | Emergency (ER) | payer SELFPAY ==
[2017-08-23 03:29] VITALS: BMI 20.7
[2017-08-23 03:40] VITALS: BP 129/76; PULSE 80; RESP 18; TEMP 97.8; O2SAT 100
--- NOTE | 2017-08-23 03:55 | ED PDOC ---
HPI: Skin/Bite Injury Time Seen by Provider: 08/23/17 03:41 Chief Complaint (Nursing): Abnormal Skin Integrity Chief Complaint (Provider): rash History Per: Patient History/Exam Limitations: no limitations Onset/Duration Of Symptoms: Days (2 weeks) Current Symptoms Are (Timing): Still Present Quality Of Symptoms: Itching Additional Complaint(s): 57 y/o male presents with pruritic rash to arms, chest, and back x 2 weeks. Denies fever, drainage, known allergen. Past Medical History Reviewed: Historical Data, Nursing Documentation, Vital Signs Vital Signs: Last Vital Signs Temp 97.8 F 08/23/17 03:38 Pulse 80 08/23/17 03:38 Resp 18 08/23/17 03:38 BP 129/76 08/23/17 03:38 Pulse Ox 100 08/23/17 03:38 - Medical History PMH: Depression, HTN, Hypercholesterolemia - Family History Family History: States: Unknown Family Hx - Immunization History Hx Tetanus Toxoid Vaccination: No Hx Influenza Vaccination: No Hx Pneumococcal Vaccination: No - Home Medications Home Medications: Ambulatory Orders Medication Instructions Recorded Atorvastatin [Lipitor] 11/13/15 Hydrochlorothiazide 11/13/15 Clotrimazole/Betamethasone 15 gm EXT BID #2 tube 11/26/16 [Lotrisone] Ketoconazole 2% Cr [Nizoral] 60 gm TOP BID #1 tube 12/23/16 Azithromycin [Zithromax] 500 mg PO DAILY #6 tab 02/26/17 Guaifenesin/Pseudoephedrne HCl 1 tab PO DAILY PRN #30 ter 02/26/17 [Mucinex D 600 mg-60 mg] Promethazine HCl/Codeine 5 ml PO HS #80 ml 02/26/17 [Prometh-Codein 6.25-10 mg/5 ml] Nystatin [Mycostatin Oint] 1 applic TOP BID #1 tube 04/22/17 Ibuprofen [Motrin] 600 mg PO Q6 PRN #15 tab 05/11/17 DiphenhydrAMINE [Benadryl] 50 mg PO Q6 PRN #30 cap 08/23/17 predniSONE [Prednisone] 60 mg PO DAILY #12 tab 08/23/17 - Allergies Allergies/Adverse Reactions: Allergies Allergy/AdvReac Type Severity Reaction Status Date / Time No Known Allergies Allergy Verified 08/23/17 03:37 Review of Systems ROS Statement: Except As Marked, All Systems Reviewed And Found Negative Skin: Positive for: Rash Physical Exam - Reviewed Nursing Documentation Reviewed: Yes Vital Signs Reviewed: Yes - Physical Exam Appears: Positive for: Well, Non-toxic, No Acute Distress Skin: Positive for: Rash (hives noted mid back. papular rash with scabbed lesions noted bilateral upper extremities. No drainage, kathia-type pattern, temp change noted) Extremity: Positive for: Normal ROM Neurologic/Psych: Positive for: Alert, Oriented - ECG O2 Sat by Pulse Oximetry: 100 - Progress ED Course And Treament: Patient educated on findings, discharged with rx Benadryl, prednisone Advised follow up PMD 2-3 days. Return precautions given. Disposition - Clinical Impression Clinical Impression: Dermatitis - Patient ED Disposition Is Patient to be Admitted: No Counseled Patient/Family Regarding: Diagnosis, Need For Followup, Rx Given - Disposition Referrals: [facility] [Outside] Disposition: Routine/Home Disposition Time: 03:57 Condition: IMPROVED Prescriptions: DiphenhydrAMINE [Benadryl] 50 mg PO Q6 PRN #30 cap PRN Reason: Allergy Symptoms predniSONE [Prednisone] 60 mg PO DAILY #12 tab Instructions: Dermatitis
== END 2017-08-23 06:00 | disposition home or self-care (01) ==
LOC: H.ER 03:29
DX: L30.9 Dermatitis, unspecified (principal); E78.00 Pure hypercholesterolemia, unspecified; F32.9 Major depressive disorder, single episode, unspecified; I10 Essential (primary) hypertension

== ENCOUNTER 2017-09-04 00:25 | Emergency (ER) | payer MEDICAID ==
[2017-09-04 00:25] VITALS: BMI 20.7
[2017-09-04 00:48] VITALS: RESP 16
[2017-09-04] MEDS ORDERED: DiphenhydrAMINE 50 mg/ml Inj IV STA (01:43)
--- NOTE | 2017-09-04 01:46 | ED PDOC ---
HPI: Skin/Bite Injury Time Seen by Provider: 09/04/17 01:27 Chief Complaint (Nursing): Abnormal Skin Integrity Chief Complaint (Provider): rash History Per: Patient History/Exam Limitations: no limitations Onset/Duration Of Symptoms: Days Current Symptoms Are (Timing): Still Present Quality Of Symptoms: Itching Additional Complaint(s): 57 y/o male presents to ED with generalized pruritic rash x 1 week. Denies fever, known allergen. Patient reports being seen for same rash last week; admits to not filling prescriptions given. Past Medical History Reviewed: Historical Data, Nursing Documentation, Vital Signs Vital Signs: Last Vital Signs Temp 97.9 F 09/04/17 00:46 Pulse 72 09/04/17 00:46 Resp 16 09/04/17 00:46 BP 118/72 09/04/17 00:46 Pulse Ox 98 09/04/17 04:21 - Medical History PMH: Depression, HTN, Hypercholesterolemia - Surgical History Surgical History: No Surg Hx - Family History Family History: States: Unknown Family Hx - Immunization History Hx Tetanus Toxoid Vaccination: No Hx Influenza Vaccination: No Hx Pneumococcal Vaccination: No - Home Medications Home Medications: Ambulatory Orders Medication Instructions Recorded Atorvastatin [Lipitor] 11/13/15 Hydrochlorothiazide 11/13/15 Clotrimazole/Betamethasone 15 gm EXT BID #2 tube 11/26/16 [Lotrisone] Ketoconazole 2% Cr [Nizoral] 60 gm TOP BID #1 tube 12/23/16 Azithromycin [Zithromax] 500 mg PO DAILY #6 tab 02/26/17 Guaifenesin/Pseudoephedrne HCl 1 tab PO DAILY PRN #30 ter 02/26/17 [Mucinex D 600 mg-60 mg] Promethazine HCl/Codeine 5 ml PO HS #80 ml 02/26/17 [Prometh-Codein 6.25-10 mg/5 ml] Nystatin [Mycostatin Oint] 1 applic TOP BID #1 tube 04/22/17 Ibuprofen [Motrin] 600 mg PO Q6 PRN #15 tab 05/11/17 DiphenhydrAMINE [Benadryl] 50 mg PO Q6 PRN #30 cap 08/23/17 predniSONE [Prednisone] 60 mg PO DAILY #12 tab 08/23/17 DiphenhydrAMINE [Benadryl] 50 mg PO Q6 PRN #30 cap 09/04/17 Famotidine [Pepcid] 20 mg PO BID #8 tab 09/04/17 predniSONE [Prednisone] 60 mg PO DAILY #12 tab 09/04/17 - Allergies Allergies/Adverse Reactions: Allergies Allergy/AdvReac Type Severity Reaction Status Date / Time No Known Allergies Allergy Verified 09/04/17 00:46 Review of Systems ROS Statement: Except As Marked, All Systems Reviewed And Found Negative Skin: Positive for: Rash Physical Exam - Reviewed Nursing Documentation Reviewed: Yes Vital Signs Reviewed: Yes - Physical Exam Appears: Positive for: Well, Non-toxic, No Acute Distress Head Exam: Positive for: ATRAUMATIC, NORMAL INSPECTION, NORMOCEPHALIC Skin: Positive for: Rash (papular rash noted bilateral upper extremities, chest , abdomen, back. No lesions, drainage, kathia-type lesions, or temp change noted ) Eye Exam: Positive for: Normal appearance ENT: Positive for: Normal ENT Inspection Cardiovascular/Chest: Positive for: Regular Rate, Rhythm Respiratory: Positive for: Normal Breath Sounds Gastrointestinal/Abdominal: Positive for: Normal Exam Back: Positive for: Normal Inspection Extremity: Positive for: Normal ROM Neurologic/Psych: Positive for: Alert, Oriented - ECG O2 Sat by Pulse Oximetry: 98 - Progress ED Course And Treament: IV Benadryl, IV solumedrol, IV Pepcid On re-eval, patient states he is feeling better. Rash visibly improving. Patient educated on findings, discharged with Benadryl, Pepcid, Prednisone. Stressed importance of filling prescriptions. Follow up PMD 2-3 days. Return precautions given. Disposition - Clinical Impression Clinical Impression: Rash and nonspecific skin eruption - Patient ED Disposition Is Patient to be Admitted: No Counseled Patient/Family Regarding: Diagnosis, Need For Followup, Rx Given - Disposition Referrals: [facility] [Outside] Disposition: Routine/Home Disposition Time: 04:00 Condition: IMPROVED Prescriptions: DiphenhydrAMINE [Benadryl] 50 mg PO Q6 PRN #30 cap PRN Reason: Allergy Symptoms Famotidine [Pepcid] 20 mg PO BID #8 tab predniSONE [Prednisone] 60 mg PO DAILY #12 tab Instructions: Skin Rash Forms: [employer] (Albanian)
[2017-09-04] MEDS ORDERED: DiphenhydrAMINE 50 mg/ml Inj ONE (02:04)
[2017-09-04 06:18] VITALS: BP 113/62; PULSE 78; TEMP 98.7; O2SAT 99
== END 2017-09-04 06:12 | disposition home or self-care (01) ==
LOC: H.ER 00:25
DX: R21 Rash and other nonspecific skin eruption (principal); E78.00 Pure hypercholesterolemia, unspecified; F32.9 Major depressive disorder, single episode, unspecified; I10 Essential (primary) hypertension
CPT/HCPCS: 96374; 96375; 99282; J1200; J2930

== ENCOUNTER 2017-09-05 03:31 | Emergency (ER) | payer MEDICAID ==
[2017-09-05 03:32] VITALS: BMI 20.7
[2017-09-05 03:47] VITALS: BP 110/72; PULSE 75; RESP 16; TEMP 98.3; O2SAT 98
--- NOTE | 2017-09-05 04:58 | ED PDOC ---
HPI: General Adult Time Seen by Provider: 09/05/17 03:38 Chief Complaint (Nursing): Abnormal Skin Integrity Chief Complaint (Provider): Abnormal Skin Integrity History Per: Patient History/Exam Limitations: no limitations Onset/Duration Of Symptoms: Days (x 1 week) Current Symptoms Are (Timing): Still Present Additional Complaint(s): 57 year old male with history of rash presents to the ED complaining of a rash to his back and abdomen that began 1 week ago. He was seen in the ED yesterday on 09/04 and treated for same symptoms. Patient denies fever. states it is itchy. PMD: Dr. Aniket Daugherty Past Medical History Reviewed: Historical Data, Nursing Documentation, Vital Signs Vital Signs: Last Vital Signs Temp 98.3 F 09/05/17 03:44 Pulse 75 09/05/17 03:44 Resp 16 09/05/17 03:44 BP 110/72 09/05/17 03:44 Pulse Ox 98 09/05/17 05:04 - Medical History PMH: Depression, HTN, Hypercholesterolemia - Surgical History Surgical History: No Surg Hx - Family History Family History: States: Unknown Family Hx - Social History Current smoker - smoking cessation education provided: Yes (Light Smoker <10 cigarettes daily) Alcohol: Social Drugs: Denies - Immunization History Hx Tetanus Toxoid Vaccination: No Hx Influenza Vaccination: No Hx Pneumococcal Vaccination: No - Home Medications Home Medications: Ambulatory Orders Medication Instructions Recorded Atorvastatin [Lipitor] 11/13/15 Hydrochlorothiazide 11/13/15 Clotrimazole/Betamethasone 15 gm EXT BID #2 tube 11/26/16 [Lotrisone] Ketoconazole 2% Cr [Nizoral] 60 gm TOP BID #1 tube 12/23/16 Azithromycin [Zithromax] 500 mg PO DAILY #6 tab 02/26/17 Guaifenesin/Pseudoephedrne HCl 1 tab PO DAILY PRN #30 ter 02/26/17 [Mucinex D 600 mg-60 mg] Promethazine HCl/Codeine 5 ml PO HS #80 ml 02/26/17 [Prometh-Codein 6.25-10 mg/5 ml] Nystatin [Mycostatin Oint] 1 applic TOP BID #1 tube 04/22/17 Ibuprofen [Motrin] 600 mg PO Q6 PRN #15 tab 12/08/17 DiphenhydrAMINE [Benadryl] 50 mg PO Q6 PRN #30 cap 08/23/17 predniSONE [Prednisone] 60 mg PO DAILY #12 tab 08/23/17 DiphenhydrAMINE [Benadryl] 50 mg PO Q6 PRN #30 cap 09/04/17 Famotidine [Pepcid] 20 mg PO BID #8 tab 09/04/17 predniSONE [Prednisone] 60 mg PO DAILY #12 tab 09/04/17 - Allergies Allergies/Adverse Reactions: Allergies Allergy/AdvReac Type Severity Reaction Status Date / Time No Known Allergies Allergy Verified 09/05/17 03:44 Review of Systems ROS Statement: Except As Marked, All Systems Reviewed And Found Negative Skin: Positive for: Rash Physical Exam - Reviewed Nursing Documentation Reviewed: Yes Vital Signs Reviewed: Yes - Physical Exam Appears: Positive for: No Acute Distress Head Exam: Positive for: ATRAUMATIC, NORMOCEPHALIC Skin: Positive for: Rash (diffuse bug bites vs allergic) Respiratory: Positive for: Normal Breath Sounds. Negative for: Respiratory Distress Gastrointestinal/Abdominal: Positive for: Normal Exam, Soft Extremity: Positive for: Normal ROM. Negative for: Deformity Neurologic/Psych: Positive for: Alert, Oriented. Negative for: Motor/Sensory Deficits - ECG O2 Sat by Pulse Oximetry: 98 (RA) Pulse Ox Interpretation: Normal Medical Decision Making Medical Decision Making: Time: 03:38 Impression: rash Initial Plan: --Benadryl 25 mg PO Scribe Attestation: Documented by Ronna Blunt, acting as a scribe for Ольга Rubin MD Provider Scribe Attestation: All medical record entries made by the Scribe were at my direction and personally dictated by me. I have reviewed the chart and agree that the record accurately reflects my personal performance of the history, physical exam, medical decision making, and the department course for this patient. I have also personally directed, reviewed, and agree with the discharge instructions and disposition. Disposition - Clinical Impression Clinical Impression: Rash and nonspecific skin eruption - Patient ED Disposition Is Patient to be Admitted: No Counseled Patient/Family Regarding: Studies Performed, Diagnosis, Need For Followup - Disposition Disposition: Discharged/Transfer to Law Enforcement Disposition Time: 05:00 Condition: IMPROVED Additional Instructions: follow up with your primary doctor in 1-2 days return to the ED with any worsening or concerning symptoms Instructions: Skin Rash (DC) Forms: [employer] (Faroese)
== END 2017-09-05 06:00 | disposition home or self-care (01) ==
LOC: H.ER 03:31
DX: R21 Rash and other nonspecific skin eruption (principal); F17.210 Nicotine dependence, cigarettes, uncomplicated; Z86.59 Personal history of other mental and behavioral disorders; I10 Essential (primary) hypertension